=== PATIENT | male | born 1960 | race Caucasian/White ===

== ENCOUNTER 2023-12-16 19:39 | Emergency (ER) | payer SELFPAY ==
[2023-12-16] MEDS ORDERED: MORPHINE 4 MG/ML SYR ONE ×2 (20:27→20:52)
[2023-12-16 20:33] LABS: Absolute Basophils 0.1 K/uL (0-0.5); Absolute Eosinophils 0.3 K/uL (0-0.5); Absolute Lymphocytes (CBC) 2.2 K/uL (0.7-4.9); Absolute Monocytes 0.5 K/uL (0.1-1.3); Absolute Neutrophil 5.7 K/uL (1.8-8.0); Basophils % 0.8 % (0-1.3); Eosinophils % 3.4 % (0-4.4); Hematocrit 42.9 % (39.6-49.0); Hemoglobin 14.6 g/dL (13.6-17.9); Lymphocytes % 25.5 % (15.3-44.8); MCH 31.2 pg (27.0-35.0); MCV 91.5 fL (80-100); MPV 8.9 fL (7.6-11.3); Monocytes % 5.3 % (3.3-12.3); Nucleated Red Blood Cells % 0.1 % (0-0); Platelets 176 thou/uL (152-406); RBC Red Blood Cell Count 4.68 M/uL (4.33-5.43); Red Cell Distribution Width 14.5 % (12.1-15.2)
[2023-12-16 20:43] LABS: Specific Gravity 1.014 (1.005-1.030); Urine Bilirubin NEGATIVE (Negative); Urine Blood Negative (Negative); Urine Clarity Clear (Clear); Urine Color Light-Yellow (Yellow); Urine Glucose NEGATIVE (Negative); Urine Ketones NEGATIVE (Negative); Urine Microscopic Reflex YN NO UMIC; Urine Nitrite NEGATIVE (Negative); Urine Protein NEGATIVE (Negative); Urine Urobilinogen Normal (Normal); Urine pH 6.5 (5.0-7.0)
[2023-12-16 20:53] LABS: Albumin 3.5 g/dL (3.4-5.0); Anion Gap 5.2 mEq/L (5.0-15.0); Bilirubin Total 0.2 mg/dL (0.2-1.0); Globulin 3.6 g/dL (2.3-3.5); Potassium 4.2 mEq/L (3.5-5.1); Protein, Total 7.1 g/dL (6.4-8.2)
--- NOTE | 2023-12-16 21:54 | RAD REPORT ---
EXAMINATION: CT ABDOMEN AND PELVIS WITHOUT CONTRAST CLINICAL INDICATION: umbilical pain TECHNIQUE: CT abdomen and pelvis was performed, without IV contrast, as per department protocol. Axia l, sagittal and coronal reconstructions were obtained. One or more of the following dose reduction techniques were used: Automated exposure control, adjustment of the mA and kV according to the patien t size, and iterative reconstruction. Unless otherwise specified, incidental findings do not require dedicated imaging follow-up. COMPARISON: No prior exam. FINDINGS: The lack of intravenous contrast limits the sensitivity of this exam for evaluation of solid visceral organs, vascular structures, and retroperitoneum. LOWER CHEST: The visualized lung bases are clear. LIVER:Mildly nodular liver contour likely representing cirrhosis. Grossly unremarkable gallbladder. SPLEEN: Normal size. No focal lesion. PANCREAS: No mass, ductal dilation, or jaya-pancreatic fluid. ADRENALS: Normal; no mass. KIDNEYS AND URETERS: Normal size and contour. No hydronephrosis. URINARY BLADDER: Normal contour. GASTROINTESTINAL TRACT: No evidence of bowel obstruction, significant free fluid, free air or abscess . Moderate retained stool throughout the colon. APPENDIX: Normal appendix. LYMPH NODES: No lymphadenopathy. MUSCULOSKELETAL: Mild multilevel spinal degenerative changes. ADDITIONAL FINDINGS: Moderate-sized fat-containing umbilical hernia. IMPRESSION: Moderate fat-containing clinical hernia. Moderate stool retention throughout the colon. Mild liver cirrhosis likely present.
--- NOTE | 2023-12-16 22:32 | EDPHYS ---
Physician Documentation [facility] Name: Ed Green Jr Age: 63 yrs Sex: Male : 1960 Arrival Date: 12/16/2023 Time: 19:39 Bed 13 Private MD: ED Physician Junito Harper HPI: 12/15 20:00 This 63 yrs old Male presents to ER via Ambulatory with complaints of Abdominal Pain. cp 20:00 The patient presents with abdominal pain in the periumbilical area. cp 20:00 Onset: The symptoms/episode began/occurred 4 day(s) ago. cp 20:00 The symptoms do not radiate. Associated signs and symptoms: Pertinent positives: cp nausea, Pertinent negatives: chest pain, constipation, diarrhea, testicular pain, vomiting. The symptoms are described as waxing/waning. Severity of pain: in the emergency department the pain is actually worse moderately. Historical: - Allergies: 19:55 No Known Allergies; me1 - PMHx: 19:55 Hypertensive disorder; me1 - PSHx: 19:55 None; me1 - Immunization history:: Adult Immunizations up to date. - Infectious Disease History:: Denies. - Social history:: Smoking status: Patient reports the use of cigarette tobacco products, smokes one-half pack cigarettes per day. ROS: 20:05 Constitutional: Negative for body aches, chills, fever, poor PO intake, cp 20:05 Eyes: Negative for injury, pain, redness, and discharge, cp 20:05 ENT: Negative for drainage from ear(s), ear pain, sore throat, difficulty swallowing, difficulty handling secretions, 20:05 Cardiovascular: Negative for chest pain, edema, palpitations, 20:05 Respiratory: Negative for cough, shortness of breath, wheezing, 20:05 Abdomen/GI: Positive for abdominal pain, nausea, Negative for vomiting, diarrhea, constipation, black/tarry stool, rectal bleeding, 20:05 Back: Negative for pain at rest, pain with movement, 20:05 : Negative for urinary symptoms, hematuria, testicular pain 20:05 Neuro: Negative for altered mental status, dizziness, headache, weakness, 20:05 All other systems are negative, Exam: 20:10 Constitutional: The patient appears in no acute distress, alert, awake, non-toxic, well cp developed, well nourished, uncomfortable, 20:10 Head/Face: Normocephalic, atraumatic. cp 20:10 Eyes: Periorbital structures: appear normal, Conjunctiva: normal, no exudate, no injection, Sclera: no appreciated abnormality, Lids and lashes: appear normal, bilaterally, 20:10 ENT: External ear(s): are unremarkable, Nose: is normal, Mouth: Lips: moist, Oral mucosa: pink and intact, moist, Posterior pharynx: Airway: no evidence of obstruction, patent, 20:10 Chest/axilla: Inspection: normal, 20:10 Cardiovascular: Rate: normal, Rhythm: regular, 20:10 Respiratory: the patient does not display signs of respiratory distress, Respirations: normal, no use of accessory muscles, no retractions, labored breathing, is not present, Breath sounds: are clear throughout, no decreased breath sounds, no stridor, no wheezing, 20:10 Abdomen/GI: Inspection: abdomen appears normal, Bowel sounds: active, all quadrants, Palpation: soft, in all quadrants, severe abdominal tenderness, in the umbilical area, rebound tenderness, is not appreciated, voluntary guarding, is elicited in the umbilical area, 20:10 Back: pain, is absent, ROM is normal, 20:10 Skin: cellulitis, is not appreciated, no rash present. Vital Signs: 19:54 BP 144 / 92; Pulse 72; Resp 18; Temp 97.8; Pulse Ox 100% ; Weight 84.82 kg; Height 5 me1 ft. 8 in. ; Pain 10/10; 20:55 BP 131 / 85; Pulse 76; Resp 18; Pulse Ox 100% on R/A; Pain 7/10; rg5 21:30 BP 131 / 83; Pulse 75; Resp 17 S; Pulse Ox 100% ; rg5 22:40 BP 133 / 80; Pulse 77; Resp 17; Pulse Ox 100% on R/A; Pain 5/10; rg5 19:54 Body Mass Index 28.43 (84.82 kg, 172.72 cm) me1 19:54 Pain Scale: Adult me1 20:55 Pain Scale: Adult rg5 22:40 Pain Scale: Adult rg5 MDM: 19:47 Medical Screening Exam initiated cp 20:00 Differential diagnosis: appendicitis, bowel obstruction, cholecystitis, Cholelithiasis, cp non-specific abd pain, Ureterolithiasis, urinary tract infection, incarcerated hernia. 22:30 Data reviewed: vital signs, nurses notes, lab test result(s), radiologic studies, CT cp scan, and as a result, I will discharge patient. 22:31 I considered the following discharge prescriptions or medication management in the emergency department Medications were administered in the Emergency Department. See MAR. 22:31 Care significantly affected by the following chronic conditions: Hypertension. Counseling: I had a detailed discussion with the patient and/or guardian regarding the historical points, exam findings, and any diagnostic results supporting the discharge/admit diagnosis, lab results, radiology results, the need for outpatient follow up, for definitive care, a general surgeon, to return to the emergency department if symptoms worsen or persist or if there are any questions or concerns that arise at home. Response to treatment: the patient's symptoms have markedly improved after treatment, and as a result, I will discharge patient. Special discussion: Based on the patient's Hx, exam, and Dx evaluation, there is no indication for emergent surgery or inpatient Tx. It is understood by the patient/guardian that if the Sx's persist or worsen they need to return immediately for re-evaluation. 12/15 19:57 Order name: CBC with Diff; Complete Time: 22:18 12/15 19:57 Order name: CMP; Complete Time: 22:18 12/15 22:18 Interpretation: Normal except: CL 116; CRE 1.90; GFR 39; AST 14; GLOB 3.6; A/G 1.0. 12/15 19:57 Order name: Lipase; Complete Time: 22:18 12/15 19:57 Order name: Urinalysis w/ reflexes; Complete Time: 22:18 12/15 21:30 Order name: Abdomen ; Complete Time: 22:18 EDMS 12/15 22:19 Interpretation: Report reviewed. 12/15 19:57 Order name: IV Saline Lock; Complete Time: 20:29 12/15 19:57 Order name: Labs collected and sent; Complete Time: 20:29 12/15 19:58 Order name: Misc. Order: have patient lay flat, slight trendalenberg ; Complete Time: 20:35 Administered Medications: 20:35 Drug: morphine IVP or IV 4 mg IVP once over 4 mins Route: IVP; Infused Over: 4 mins; rg5 Site: left wrist; 20:54 Follow up: Response: No adverse reaction; Pain is decreased rg5 20:54 Drug: morphine IVP or IV 4 mg IVP once over 4 mins Route: IVP; Infused Over: 4 mins; rg5 Site: left wrist; 21:20 Follow up: Response: No adverse reaction; Pain is decreased rg5 Disposition Summary: 12/16/23 22:31 Discharge Ordered Notes: Location: Home cp Problem: new cp Symptoms: have improved cp Condition: Stable cp Diagnosis - Umbilical hernia without obstruction or gangrene cp - Hypertensive heart and chronic kidney disease without heart failure, with stage 1 cp through stage 4 chronic kidney disease, or unspecified chronic kidney disease Followup: cp - With: Atif Mello MD - When: 2 - 3 days - Reason: umbilical hernia Discharge Instructions: - Discharge Summary Sheet cp - Hypertension, Adult cp - Chronic Kidney Disease, Adult cp - Umbilical Hernia, Adult cp Forms: - Medication Reconciliation Form cp - Antibiotic Education cp - Prescription Opioid Use cp - Patient Portal Instructions cp - Leadership Thank You Letter cp Prescriptions: - Tramadol 50 mg Oral Tablet - take 1 tablet ORAL route every 8 hours as needed; 12 tablet; Refills: 0, cp Product Selection Permitted Signatures: Dispatcher [employer] EDJunito Caldera PA PA cp Ivis Pineda, RN RN me1 Amado Hull RN RN rg5 Corrections: (The following items were deleted from the chart) 21:30 21:04 Abdomen Pelvis W [id number].RAD.BRZ ordered. EDMS EDMS
--- NOTE | 2023-12-16 22:32 | ER ---
Nurse's Notes [facility] Name: Ed Green Jr Age: 63 yrs Sex: Male : 1960 Arrival Date: 12/16/2023 Time: 19:39 Bed 13 Private MD: Diagnosis: Umbilical hernia without obstruction or gangrene;Hypertensive heart and chronic kidney disease without heart failure, with stage 1 through stage 4 chronic kidney disease, or unspecified chronic kidney disease Presentation: 12/15 19:54 Chief complaint: Patient states: abdominal pain near umbilicus x 4 days that worsened me1 today with some nausea. Coronavirus screen: Vaccine status: Patient reports receiving the 1st dose of the Covid vaccine. Ebola Screen: No symptoms or risks identified at this time. Initial Sepsis Screen: Does the patient meet any 2 criteria? No. Patient's initial sepsis screen is negative. Does the patient have a suspected source of infection? No. Patient's initial sepsis screen is negative. Risk Assessment: Do you want to hurt yourself or someone else? Patient reports no desire to harm self or others. Onset of symptoms was December 13, 2023. 19:54 Method Of Arrival: Ambulatory me1 19:54 Acuity: HEAVEN 3 me1 Historical: - Allergies: 19:55 No Known Allergies; me1 - PMHx: 19:55 Hypertensive disorder; me1 - PSHx: 19:55 None; me1 - Immunization history:: Adult Immunizations up to date. - Infectious Disease History:: Denies. - Social history:: Smoking status: Patient reports the use of cigarette tobacco products, smokes one-half pack cigarettes per day. Screenin:55 [facility] ED Fall Risk Assessment (Adult) History of falling in the last 3 months, rg5 including since admission No falls in past 3 months (0 pts) Confusion or Disorientation No (0 pts) Intoxicated or Sedated No (0 pts) Impaired Gait No (0 pts) Mobility Assist Device Used No (0 pt) Altered Elimination No (0 pt) Score/Fall Risk Level 0 - 2 = Low Risk Oriented to surroundings, Maintained a safe environment, Hourly rounding (assess needs \T\ fall precautionary measures) done. Abuse screen: Denies threats or abuse. Nutritional screening: No deficits noted. Tuberculosis screening: No symptoms or risk factors identified. Assessment: 19:50 General: Appears in no apparent distress. Behavior is calm, cooperative, appropriate rg5 for age. 19:50 Pain: Complains of pain in umbilical area Pain currently is 10 out of 10 on a pain rg5 scale. Quality of pain is described as aching, Pain began 2-3 days ago. Neuro: Level of Consciousness is awake, alert, obeys commands, Oriented to person, place, time. Cardiovascular: Heart tones S1 S2 Capillary refill < 3 seconds Patient's skin is warm and dry. Respiratory: Airway is patent Trachea midline Respiratory effort is even, unlabored, Respiratory pattern is regular, symmetrical. GI: Abdomen is round non-distended, Bowel sounds present X 4 quads. Abd is soft and non tender Reports Pain is 10 out of 10 on a pain scale. : No signs and/or symptoms were reported regarding the genitourinary system. EENT: No deficits noted. Derm: Skin is intact, Skin is dry, Skin is normal, Skin temperature is warm. Musculoskeletal: Circulation, motion, and sensation intact. Range of motion: intact in all extremities. 20:44 Reassessment: Patient and/or family updated on plan of care and expected duration. Pain rg5 level reassessed. Patient is alert, oriented x 3, equal unlabored respirations, skin warm/dry/pink. Patient states symptoms have improved. 21:30 Reassessment: Patient and/or family updated on plan of care and expected duration. Pain rg5 level reassessed. Patient is alert, oriented x 3, equal unlabored respirations, skin warm/dry/pink. 22:30 Reassessment: Patient and/or family updated on plan of care and expected duration. Pain rg5 level reassessed. Patient states symptoms have improved. Vital Signs: 19:54 BP 144 / 92; Pulse 72; Resp 18; Temp 97.8; Pulse Ox 100% ; Weight 84.82 kg; Height 5 me1 ft. 8 in. ; Pain 10/10; 20:55 BP 131 / 85; Pulse 76; Resp 18; Pulse Ox 100% on R/A; Pain 7/10; rg5 21:30 BP 131 / 83; Pulse 75; Resp 17 S; Pulse Ox 100% ; rg5 22:40 BP 133 / 80; Pulse 77; Resp 17; Pulse Ox 100% on R/A; Pain 5/10; rg5 19:54 Body Mass Index 28.43 (84.82 kg, 172.72 cm) me1 19:54 Pain Scale: Adult me1 20:55 Pain Scale: Adult rg5 22:40 Pain Scale: Adult rg5 ED Course: 19:41 Patient arrived in ED. im 19:44 Junito Kaur PA is PHCP. cp 19:44 Junito Harper MD is Attending Physician. cp 19:55 Triage completed. me1 19:55 Arm band placed on Patient placed in an exam room. me1 19:55 Patient has correct armband on for positive identification. Bed in low position. Call rg5 light in reach. Side rails up X 1. Door closed. Noise minimized. Warm blanket given. Head of bed lowered. 19:55 No provider procedures requiring assistance completed. rg5 20:16 Amado Hull, RN is Primary Nurse. rg5 20:29 CBC with Diff Sent. af3 20:29 CMP Sent. af3 20:29 Lipase Sent. af3 20:29 Inserted saline lock: 22 gauge in left wrist, using aseptic technique. Blood collected. af3 Flushed with 10 mL NS. 21:40 Abdomen In Process Unspecified. EDMS 22:30 Atif Mello MD is Referral Physician. cp 22:45 Provided Education on: post er care. rg5 22:45 IV discontinued, bleeding controlled, No redness/swelling at site. Pressure dressing rg5 applied. Administered Medications: 20:35 Drug: morphine IVP or IV 4 mg IVP once over 4 mins Route: IVP; Infused Over: 4 mins; rg5 Site: left wrist; 20:54 Follow up: Response: No adverse reaction; Pain is decreased rg5 20:54 Drug: morphine IVP or IV 4 mg IVP once over 4 mins Route: IVP; Infused Over: 4 mins; rg5 Site: left wrist; 21:20 Follow up: Response: No adverse reaction; Pain is decreased rg5 Medication: 19:55 VIS not applicable for this client. rg5 Outcome: 22:31 Discharge ordered by . cp 22:44 Discharged to home ambulatory, rg5 22:44 Condition: stable 22:44 Discharge instructions given to patient, Instructed on discharge instructions, follow up and referral plans. Demonstrated understanding of instructions, follow-up care, medications, Prescriptions given X 1, 22:49 Patient left the ED. rg5 Signatures: Dispatcher [employer] EDJunito Caldera PA PA cp Mendoza, Itzel im Eddleman, Michelle RN RN me1 Amado Hull RN RN rg5 [place] 3
[2023-12-16 22:54] VITALS: TEMP 97.8; O2SAT 100
[2023-12-16 22:58] VITALS: BP 133/80
== END 2023-12-16 22:49 | disposition home or self-care (01) ==
LOC: ER 19:39
DX: K42.9 Umbilical hernia without obstruction or gangrene (principal); I12.9 Hypertensive chronic kidney disease with stage 1 through stage 4 chronic kidney disease, or unspecified chronic kidney disease; N18.4 Chronic kidney disease, stage 4 (severe); F17.210 Nicotine dependence, cigarettes, uncomplicated
CPT/HCPCS: 36415; 74176; 80053; 81003; 83690; 85025; 96374; 99284